=== PATIENT | male | born 1960 ===

== ENCOUNTER → 2017-05-21 09:31 | Outpatient (CLI) | payer OTHER | END | disposition home or self-care (01) | LOC: LAB 09:31 | DX: R50.9 Fever, unspecified (principal) ==

== ENCOUNTER → 2017-05-22 11:24 | Outpatient (CLI) | payer OTHER | END | disposition home or self-care (01) | LOC: LAB 11:24 | DX: R50.9 Fever, unspecified (principal); K59.1 Functional diarrhea; K63.4 Enteroptosis ==

== ENCOUNTER 2017-05-22 12:34 | Outpatient (CLI) | payer OTHER | END 2017-05-22 15:21 | disposition home or self-care (01) | LOC: MRI 12:34 | DX: M75.101 Unspecified rotator cuff tear or rupture of right shoulder, not specified as traumatic (principal) | CPT/HCPCS: 72141; 73221 ==

== ENCOUNTER → 2017-05-23 10:36 | Outpatient (CLI) | payer OTHER | END | disposition home or self-care (01) | LOC: LAB 10:36 | DX: K59.1 Functional diarrhea (principal); K63.4 Enteroptosis ==